=== PATIENT | male | born 1955 | race Hispanic/Latino ===

== ENCOUNTER 2024-10-25 16:14 | Emergency (ER) | payer MEDICAID, MEDICARE ==
[2024-10-25] MEDS ORDERED: Acetaminophen 325 MG TAB ONE (16:40)
[2024-10-25] MEDS ORDERED: Boostrix 0.5 ML (Tdap) VIAL (>/=7 yrs of age) ONE (18:05)
== END 2024-10-25 18:12 | disposition home or self-care (01) ==
LOC: CSHERS 16:14
DX: S61.217A Laceration without foreign body of left little finger without damage to nail, initial encounter (principal); S09.90XA Unspecified injury of head, initial encounter; E78.5 Hyperlipidemia, unspecified; I48.91 Unspecified atrial fibrillation; Z23 Encounter for immunization; Z86.73 Personal history of transient ischemic attack (TIA), and cerebral infarction without residual deficits; W11.XXXA Fall on and from ladder, initial encounter; Y93.89 Activity, other specified; Y92.009 Unspecified place in unspecified non-institutional (private) residence as the place of occurrence of the external cause
CPT/HCPCS: 12001; 70450; 72125; 90471; 90715